=== PATIENT | female | born 1945 | race Caucasian/White ===

== ENCOUNTER 2016-11-09 10:24 | Outpatient (CLI) | payer MEDICARE, OTHER ==
[2016-11-09 11:12] LABS: eGFR (African) > 60; eGFR (Non-African) > 60
== END 2016-11-09 10:25 ==
LOC: LAB 10:24
PROVIDERS: ATTEND Family Medicine
DX: I10 Essential (primary) hypertension (principal)
CPT/HCPCS: 36415; 80053; 80061

== ENCOUNTER 2017-10-09 18:33 | Emergency (ER) | payer MEDICARE, OTHER ==
[2017-10-09] MEDS ORDERED: MAG HYDROX/ALUMINUM HYD/SIMETH 30 ML, Lidocaine 2%Visc 15ml 20 MG, PHENobarb/HYOSCY/ATR... PO ONE ×3 (19:22)
[2017-10-09] MEDS ORDERED: ONDANSETRON HCL/PF 4 MG/ 2ML VIAL IVP ONE (19:22)
--- NOTE | 2017-10-09 19:22 | ED Physician Documentation ---
Abdominal Pain - HISTORIAN Historian: patient - HPI Stated Complaint: abdominal pain Chief Complaint: Abdominal Pain Onset: days ago (4) Duration: waxing, waning Timing: still present Context: denies: out of country travel, bad food, recent trauma Severity: mild Quality: burning, other ("gwaning" ) Associated Symptoms: nausea, loss of appetite. denies: fever, chills, vomiting, coffee ground emesis, bloody emesis, diarrhea, grossly bloody stools, mucous, sweating, chest pain, testicular pain, back pain, neck pain Exacerbated by: other (sometimes with food or without food specifically ) Relieved by: other (sometimes eating and sometimes not eating ) Further Comments: yes (She states that she started to have this pain - she states epigastric in location and she states the pain is at times with food or not with food and sometimes the relief comes with eating or not eating. she states the pain is burning and gawing she states that she has had increasing nausea and pain with food specifically today so she has not had any solid foods,. She denies a fever. No pain with urination. No new food exposures. She has had diverticulitis in the past.) - ROS CONST: no problems GI/: denies: constipation, dark urine, problems urinating CVS/RESP: denies: palpitations, shortness of breath, hurts to breath, cough EYES/ENT: denies: problems with vision, sore throat MS/SKIN/LYMPH: none NEURO/PSYCH: denies: headache, dizziness, light-headedness, anxiety, depression - SOCIAL HX Smoking History: cigarettes Alcohol Use: none Drug Use: none - FAMILY HX Family History: other (diverticulitis ) - PAST HX Past History: other (diverticulitis, HTN, hyperlipidemia, anxiety and GERD ) Ischemic Bowel Risk Factors: none Other History: hypertension Surgeries/Procedures: none Immunizations: UTD Allergies/Adverse Reactions: Allergies Allergy/AdvReac Type Severity Reaction Status Date / Time No Known Allergies Allergy Verified 10/09/17 19:12 - VITAL SIGNS Vital Signs: Vital Signs Temp Pulse Resp BP Pulse Ox 98.3 F 98 H 16 152/88 95 10/09/17 19:21 10/09/17 19:21 10/09/17 19:21 10/09/17 19:21 10/09/17 19:21 - REVIEWED ASSESSMENTS Nursing Assessment Reviewed: Yes Vitals Reviewed: Yes Progress - Progress Progress: 1950: Nausea has resolved with med. She continues to have abdominal pain DG 0: stating pain is less after GI cocktail. no Nausea . DG 223: results discussed and plan. She is agreeable DG ED Results Lab/Radiology - Lab Results Lab Results: Lab Results 10/09/17 10/09/17 10/09/17 21:37 19:31 19:31 WBC RBC Hgb Hct MCV MCH MCHC RDW Plt Count Neut % (Auto) Lymph % (Auto) [place] % (Auto) Eos % (Auto) Baso % (Auto) Neut # (Auto) Lymph # (Auto) [place] # (Auto) Eos # (Auto) Baso # (Auto) Reactive Lymphs % Reactive Lymphs # PT INR D-Dimer 1024 ng/mL H ng/mL (6.0-682) Sodium Potassium Chloride Carbon Dioxide BUN Creatinine Estimated Creat Clear Est GFR ( Amer) Est GFR (Non-Af Amer) Glucose Calcium Total Bilirubin AST ALT Alkaline Phosphatase Troponin I < 0.03 ng/mL L ng/mL (0.03-0.06) NT-Pro-B Natriuret Pep 290.1 pg/mL H pg/mL (15.0-125.0) Total Protein Albumin Lipase 31 U/L U/L (23-300) 10/09/17 10/09/17 10/09/17 19:31 19:31 19:30 WBC 6.80 K/ul K/ul (4.00-12.00) RBC 4.54 M/ul M/ul (3.90-5.20) Hgb 15.4 g/dL g/dL (12.0-16.0) Hct 44.8 % % (34.5-46.5) MCV 98.8 fl fl (80.0-100.0) MCH 33.9 pg pg (28.0-34.0) MCHC 34.3 g/dL g/dL (30.0-36.0) RDW 13.3 % % (11.3-14.3) Plt Count 232 K/mm3 K/mm3 (130-400) Neut % (Auto) 63.8 % % (39.0-79.0) Lymph % (Auto) 29.1 % % (16.0-50.0) [place] % (Auto) 3.6 % % (0.0-11.0) Eos % (Auto) 1.6 % % (0.0-6.8) Baso % (Auto) 0.3 (0.0-1.5) Neut # (Auto) 4.4 # k/uL # k/uL (1.4-7.7) Lymph # (Auto) 2.0 # k/uL # k/uL (0.6-4.0) [place] # (Auto) 0.2 # k/uL # k/uL (0.0-0.9) Eos # (Auto) 0.1 # k/uL # k/uL (0.0-0.6) Baso # (Auto) 0.0 # k/uL # k/uL (0.0-0.5) Reactive Lymphs % 1.7 % % (0.0-5.0) Reactive Lymphs # 0.1 # k/uL # k/uL (0.0-0.8) PT 9.9 Seconds Seconds (9.4-11.6) INR 0.94 (0.9-1.2) D-Dimer Sodium 140 mmol/L mmol/L (136-145) Potassium 3.6 mmol/L mmol/L (3.5-5.1) Chloride 96 mmol/L L mmol/L (98-107) Carbon Dioxide 34 mmol/L H mmol/L (22-30) BUN 16 mg/dL mg/dL (7-17) Creatinine 0.70 mg/dL mg/dL (0.52-1.04) Estimated Creat Clear 133 Est GFR ( Amer) > 60 (60 - ) Est GFR (Non-Af Amer) > 60 (60 - ) Glucose 137 mg/dL H mg/dL (74-106) Calcium 9.0 mg/dL mg/dL (8.4-10.2) Total Bilirubin < 0.1 mg/dL L mg/dL (0.2-1.3) AST 15 U/L U/L (15-46) ALT 25 U/L U/L (13-69) Alkaline Phosphatase 78 U/L U/L (38-126) Troponin I NT-Pro-B Natriuret Pep Total Protein 7.4 g/dL g/dL (6.3-8.2) Albumin 4.2 g/dL g/dL (3.5-5.0) Lipase - Radiology Radiology Impressions: Chest 2 views Date of Exam: History: EPIGASTRIC PAIN X1 WEEK (Hx) / ITS.REASON cough and wheeze Findings: No comparison studies are provided. The cardiac and mediastinal silhouettes are normal. The lungs are clear. There is no evidence of infiltrate or effusion. The trachea is midline and aortic arch contour is normal. The pulmonary vascularity is within normal limits. There is multilevel degenerative thoracic spondylosis. Impression: No acute cardiopulmonary abnormality. Electronically signed on Oct 09, 2017 8:07:37 PM CDT by: Mimi Ortiz CT abdomen and pelvis without contrast Date of study: October 09, 2017. CLINICAL HISTORY: EPIGASTRIC PAIN, HX OF DIVERTICULITIS, SCANNED EXTRA ON PE STUDY TO COVER THE AREA THE PATIENT WAS COMPLAINING OF PAIN WITH CONTRAST (Hx) / TECHNIQUE: 1.25 mm contiguous axial images of the abdomen and pelvis non contrast. FINDINGS: The lung bases are clear. Abdomen: A small hiatal hernia is present. The liver, pancreas and spleen are normal in appearance. The gallbladder is unremarkable. There is a 2 cm right renal mass exophytic from the lateral aspect of the right kidney. Further e valuation with ultrasound is recommended. Multiple bilateral renal cortical cysts are noted. A 2.4 cm left adrenal mass is indeterminate on the basis of this examination alone. The infrarenal abdominal aorta is somewhat ectatic measuring 2.5 cm in diameter and scattered atherosclerotic calcifications are present. The small bowel is nondistended. There is no evidence of free air or free fluid. A fat containing umbilical hernia is present. Pelvis: There is diverticulosis of the descending and sigmoid colon. The distal ureters and bladder are normal in appearance. The appendix is normal. There is no evidence of free air or free fluid. The sigmoid colon and rectum are normal. The remaining pelvic structures are within normal limits and the bones of the pelvis are intact. Multilevel degenerative lumbar spondylosis is present. Grade IL45 anterior spondylolisthesis and multilevel degenerative lumbar spondylosis are present. IMPRESSION: 2 cm right renal mass. Recommend followup ultrasound for further evaluation. 2.4 cm left adrenal mass. Descending and sigmoid colon diverticulosis. Electronically signed on Oct 09, 2017 9:45:15 PM CDT by: Mimi Ortiz - Orders Orders: ED Orders Category Date Time Status IV Started NOW Care 10/09/17 19:23 Active CHEST 2VIEW [RAD] Stat Exams 10/09/[address] ABD & PELVIS W/O CON Stat Exams 10/09/[address] CHEST W/ CONTRAST Stat Exams 10/09/17 Taken BNP [NT-proBNP] Stat Lab 10/09/17 21:37 Completed CBC/PLATELET/DIFF Routine Lab 10/09/17 19:31 Completed CMP Routine Lab 10/09/17 19:31 Completed D DIMER Stat Lab 10/09/17 19:31 Completed LIPASE Stat Lab 10/09/17 19:31 Completed PTINR [PT-INR] Routine Lab 10/09/17 19:30 Completed TROPONIN I (cTnI) Stat Lab 10/09/17 19:31 Completed URINALYSIS Routine Lab 10/09/17 Ordered 0.9 % Sodium Chloride [Normal Saline] 1,000 ml Med 10/09/17 19:30 Ordered IV Q10H Ciprofloxacin HCl [Cipro] Med 10/09/17 22:41 Discontinued 500 mg PO NOW ONE Lidocaine 2%Visc 15ml [Xylocaine] Med 10/09/17 22:00 Discontinued 300 mg .ROUTE .STK-MED ONE Mag Hydrox/Aluminum Hyd/Simeth [Mylanta] 30 ml Med 10/09/17 19:22 Ordered Lidocaine 2%Visc 15ml [Xylocaine] 20 mg PHENobarb/HYOSCY/ATROPINE/SCOP [] 10 ml PO NOW Magnesium, Aluminum Hydroxide [Maalox] Med 10/09/17 22:00 Discontinued 30 ml PO .STK-MED ONE Ondansetron HCl/Pf [Zofran 4 mg/2 ml] Med 10/09/17 19:22 Discontinued 4 mg IVP NOW ONE predniSONE [Deltasone] Med 10/09/17 22:41 Discontinued 10 mg PO NOW ONE EKG WITH COMPARISON Stat Ther 10/09/17 Ordered Abdominal Pain Physical Exam - Physical Exam General Appearance: no acute distress, alert EENT: eye inspection normal, ENT inspection normal NECK: normal inspection RESPIRATORY: no resp distress, chest non-tender, breath sounds normal CVS: reg rate & rhythm, heart sounds normal, equal pulses, no murmur ABDOMEN: soft, normal bowel sounds, no distension, tenderness (LUQ with palpation ) BACK: normal inspection SKIN: warm/dry, normal color EXTREMITIES: non-tender, normal range of motion, no evidence of injury, no edema NEURO: oriented X3, CN's nml as tested, motor nml, sensation nml, mood/affect nml, cognition normal Vital Signs: Vital Signs Temp Pulse Resp BP Pulse Ox 98.3 F 98 H 16 152/88 95 10/09/17 19:21 10/09/17 19:21 10/09/17 19:21 10/09/17 19:21 10/09/17 19:21 Discharge Clincal Impression: Renal mass Diverticulosis Qualifiers: Diverticulosis site: diverticulosis of large intestine Diverticulosis bleeding: diverticulosis without bleeding Qualified Code(s): K57.30 - Diverticulosis of large intestine without perforation or abscess without bleeding Referrals: Benjamin Perez MD [Primary Care Provider] - 2 Days Additional Instructions: 1. Cipro 500 mg take 1 by mouth twice daily x 10 2. Medrol Dose pack - as directed 3. Zofran 4 mg Take 1 by mouth every 8 hours as needed for nausea 4. Omeprazole 40 mg Take 1 by mouth daily 5. [place] foods 6. Follow up with Dr Perez this week to get U/S of kidney 7. Return to ER for any concerns Condition: Stable Disposition: 01 HOME, SELF-CARE Decision to Admit: NO Date of Decison to Admit: 10/09/17 Decision Time: 22:47
[2017-10-09] MEDS ORDERED: 0.9 % SODIUM CHLORIDE 1,000 ML IV SCH (19:30)
[2017-10-09 19:42] LABS: BASOPHILS % 0.3 (0.0-1.5); EOSINOPHILS % 1.6 % (0.0-6.8); MEAN CORPUSCULAR HEMOGLOBIN 33.9 pg (28.0-34.0); MEAN CORPUSCULAR VOLUME 98.8 fl (80.0-100.0); MONOCYTES % 3.6 % (0.0-11.0); NEUTROPHILS # 4.4 # k/uL (1.4-7.7)
[2017-10-09] MEDS ORDERED: 0.9 % SODIUM CHLORIDE 1,000 ML IV ONE (19:42)
[2017-10-09 20:06] LABS: eGFR (African) > 60; eGFR (Non-African) > 60
[2017-10-09] MEDS ORDERED: Lidocaine 2%Visc 15ml 20 MG/ML UDC ONE (22:00)
[2017-10-09] MEDS ORDERED: MAGNESIUM, ALUMINUM HYDROXIDE 30 ML UDC PO ONE (22:00)
[2017-10-09] MEDS ORDERED: CIPROFLOXACIN HCL 500 MG TABLET PO ONE (22:41)
[2017-10-09] MEDS ORDERED: predniSONE 10 MG TABLET PO ONE (22:41)
[2017-10-09 23:48] VITALS: BP 187/92
--- NOTE | 2017-10-10 06:41 | Diagnostic Imaging Report ---
LUCILLE TINAJERO [facility] [place] [facility] [address] [facility] [address] [place], [place]. [address] Report Submission Date: Oct 09, 2017 9:45:15 PM CDT Patient Study Name: KYLIE LAWSON Date: Oct 09, 2017 9:01:52 PM CDT Modality Type: CT\SR Gender: F Description: CT ABD PELVIS W/ CON : 45 Institution: [facility] [place] [facility] Physician: LUCILLE TINAJERO CT abdomen and pelvis without contrast Date of study: October 09, 2017. CLINICAL HISTORY: EPIGASTRIC PAIN, HX OF DIVERTICULITIS, SCANNED EXTRA ON PE STUDY TO COVER THE AREA THE PATIENT WAS COMPLAINING OF PAIN WITH CONTRAST (Hx) / TECHNIQUE: 1.25 mm contiguous axial images of the abdomen and pelvis non contrast. FINDINGS: The lung bases are clear. Abdomen: A small hiatal hernia is present. The liver, pancreas and spleen are normal in appearance. The gallbladder is unremarkable. There is a 2 cm right renal mass exophytic from the lateral aspect of the right kidney. Further evaluation with ultrasound is recommended. Multiple bilateral renal cortical cysts are noted. A 2.4 cm left adrenal mass is indeterminate on the basis of this examination alone. The infrarenal abdominal aorta is somewhat ectatic measuring 2.5 cm in diameter and scattered atherosclerotic calcifications are present. The small bowel is nondistended. There is no evidence of free air or free fluid. A fat containing umbilical hernia is present. Pelvis: There is diverticulosis of the descending and sigmoid colon. The distal ureters and bladder are normal in appearance. The appendix is normal. There is no evidence of free air or free fluid. The sigmoid colon and rectum are normal. The remaining pelvic structures are within normal limits and the bones of the pelvis are intact. Multilevel degenerative lumbar spondylosis is present. Grade IL45 anterior spondylolisthesis and multilevel degenerative lumbar spondylosis are present. IMPRESSION: 2 cm right renal mass. Recommend followup ultrasound for further evaluation. 2.4 cm left adrenal mass. Descending and sigmoid colon diverticulosis. Electronically signed on Oct 09, 2017 9:45:15 PM CDT by: Mimi EMMANUEL
--- NOTE | 2017-10-10 06:42 | Diagnostic Imaging Report ---
LUCILLE TINAJERO [facility] [address] [facility].[address] [address] Report Submission Date: Oct 09, 2017 8:07:37 PM CDT Patient Study Name: KYLIE LAWSON Date: Oct 09, 2017 7:43:04 PM CDT Modality Type: DX Gender: F Description: CHEST : 45 Institution: [facility] Physician: LUCILLE TINAJERO Chest 2 views Date of Exam: History: EPIGASTRIC PAIN X1 WEEK (Hx) / ITS.REASON cough and wheeze Findings: No comparison studies are provided. The cardiac and mediastinal silhouettes are normal. The lungs are clear. There is no evidence of infiltrate or effusion. The trachea is midline and aortic arch contour is normal. The pulmonary vascularity is within normal limits. There is multilevel degenerative thoracic spondylosis. Impression: No acute cardiopulmonary abnormality. Electronically signed on Oct 09, 2017 8:07:37 PM CDT by: Mimi EMMANUEL
--- NOTE | 2017-10-10 06:42 | Diagnostic Imaging Report ---
LUCILLE TINAJERO [facility] [address] [facility] [address] [place], [place]. [address] Report Submission Date: Oct 09, 2017 9:32:03 PM CDT Patient Study Name: KYLIE LAWSON Date: Oct 09, 2017 8:56:38 PM CDT Modality Type: CT\SR Gender: F Description: CT CHEST W/ CONTRAST : 45 Institution: [facility] Physician: LUCILLE TINAJERO CT chest with contrast Date of study: October 09, 2017. CLINICAL HISTORY: ELEVATED DDIMER, COUGH, EPIGASTRIC PAIN (Hx) / ITS.REASON PE r/o D Dimer elevated (DICOM Hx) / ITS.REASON cough and wheeze (Pt comments) TECHNIQUE: 2.5 mm contiguous axial images of the chest with contrast. Sagittal and coronal reconstructions. FINDINGS: There is left lingular atelectasis. A 6 mm left upper lobe lung nodule is present on axial image. A [address] scan of the chest is recommended. There is no evidence of pulmonary infiltrate, pleural effusion or pneumothorax. The cardiac and mediastinal vascular structures enhance appropriately. The aorta and pulmonary arteries are normal in caliber. There is no evidence of pulmonary artery filling defect to suggest pulmonary embolism. The mediastinal contents are within normal limits. There is a small hiatal hernia. The visualized portions of the liver and spleen are unremarkable. The pancreas is atrophic. There is a 2 cm peripherally enhancing right renal mass. Further evaluation with ultrasound is recommended. A 2.4 cm left adrenal mass is indeterminate on the basis of this examination alone. IMPRESSION: 6 mm left upper lobe lung nodule. Recommend [address] scan of the chest. No evidence of acute pulmonary embolism. 2 cm peripherally enhancing right renal mass. Recommend followup ultrasound. 2.4 cm left adrenal mass, indeterminate. Electronically signed on Oct 09, 2017 9:32:03 PM CDT by: Mimi EMMANUEL
[2017-10-10 07:50] LABS: OCCULT BLOOD,URINE NEGATIVE (NEGATIVE); UROBILINOGEN URINE 0.2 Eu (0.2-1.0)
== END 2017-10-09 23:55 | disposition home or self-care (01) ==
LOC: ED 18:33
DX: K57.30 Diverticulosis of large intestine without perforation or abscess without bleeding (principal); N28.89 Other specified disorders of kidney and ureter
CPT/HCPCS: 71046; 71260; 74176; 80053; 81002; 83690; 83880; 84484; 85025; 85379; 85610; 93005; A9270; J2405; J7030; J7512; 71275; 96365; 96368; 96375; 99284; Q9967; S1016

== ENCOUNTER 2017-10-25 11:38 | Outpatient (CLI) | payer MEDICARE, OTHER ==
--- NOTE | 2017-10-25 16:34 | Diagnostic Imaging Report ---
OWEN GILLESPIE [facility] [address] [facility].[address] [address] Report Submission Date: Oct 25, 2017 2:27:05 PM CDT Patient Study Name: KYLIE LAWSON Date: Oct 25, 2017 11:49:17 AM CDT Modality Type: US Gender: F Description: US RENAL : 45 Institution: [facility] Physician: OWEN GILLESPIE Examination: Ultrasound kidneys History: Right renal lesion. Comparison exams: CT dated 09 October 2017 Findings: Right kidney measures 10.4 cm in length. Left kidney measures 12.5 cm in length. Within the midpole region of the left kidney is a rounded structure measuring approximately 2 cm diameter. No evident no other definite cortical irregularities. No hydronephrosis. Latter margin without gross abnormality. Impression: Left mid renal mass. Right renal mass not visualized by ultrasound sensitivity. Given the CT findings, and the strong possibility of right renal cell carcinoma, renal MRI recommended to further evaluate. Electronically signed on Oct 25, 2017 2:27:05 PM CDT by: Rey EMMANUEL
== END 2017-10-25 11:40 ==
LOC: RAD 11:38
PROVIDERS: ATTEND Family Medicine
DX: N28.89 Other specified disorders of kidney and ureter (principal)
CPT/HCPCS: 76705

== ENCOUNTER 2018-05-07 21:28 | Emergency (ER) | payer MEDICARE, OTHER ==
--- NOTE | 2018-05-07 22:11 | ED Physician Documentation ---
General Adult - HPI Stated Complaint: "I have had fever I think for 2 days" Chief Complaint: General Adult Additional Information: Patient presents to ED with a 2 day history of fever, chills, cough, weakness and general malaise. Patient states all of her grand kids recently had the flu. Onset: days ago (2) Timing: still present Severity: mild Further Comments: no - ROS CONST: fever EYES/ENT: none CVS/RESP: cough. denies: shortness of breath GI/: denies: vomiting, nausea MS/SKIN/LYMPH: none NEURO/PSYCH: denies: headache - PAST HX Past History: COPD Other History: none Surgeries/Procedures: none Allergies/Adverse Reactions: Allergies Allergy/AdvReac Type Severity Reaction Status Date / Time No Known Drug Allergies Allergy Verified 05/07/18 22:50 Home Medications: Ambulatory Orders Medication Instructions Recorded predniSONE [Deltasone] 20 mg PO DIRECTED #6 tablet 05/07/18 - SOCIAL HX Smoking History: cigarettes, greater than 1 pack/day Alcohol Use: none Drug Use: none - FAMILY HX Family History: No - VITAL SIGNS Vital Signs: Vital Signs Temp Pulse Resp BP Pulse Ox 98.5 F 76 16 113/63 91 L 05/07/18 21:38 05/07/18 21:38 05/07/18 21:38 05/07/18 21:38 05/07/18 21:38 - REVIEWED ASSESSMENTS Nursing Assessment Reviewed: Yes Vitals Reviewed: Yes Progress - Results/Orders Results/Orders: Influenza A - Positive ED Results Lab/Radiology - Radiology Radiology Impressions: Report Submission Date: May 07, 2018 10:01:02 PM CDT Patient Study Name: KYLIE LAWSON Date: May 07, 2018 9:43:48 PM CDT Modality Type: DX Gender: F Description: CHEST 1VIEW : 45 Institution: [facility] Physician: LES JONES The chest AP portable Date of Exam: May 07, 2018. History: FEVER (Hx) / Findings: Comparison with October 09, 2017 demonstrates the cardiac and mediastinal silhouettes are stable. No acute infiltrate or effusion is identified. The trachea is midline. Aortic arch contour is normal. The pulmonary vascularity is stable. Impression: No acute cardiopulmonary abnormality. Electronically signed on May 07, 2018 10:01:02 PM CDT by: Mimi Ortiz - Orders Orders: ED Orders Category Date Time Status CHEST 1VIEW [RAD] Stat Exams 05/07/18 Taken CBC/PLATELET/DIFF Routine Lab 05/07/18 22:00 Received CMP Routine Lab 05/07/18 22:00 Received INFLUENZA A&B Stat Lab 05/07/18 Uncollected NT-proBNP Stat Lab 05/07/18 22:00 Received UA W/MICRO IF INDICATED Routine Lab 05/07/18 21:34 Ordered General Adult Physical Exam - PHYSICAL EXAM GENERAL APPEARANCE: no distress EENT: LEXII RESPIRATORY: no resp distress, wheezes (scattered bilaterally) CVS: reg rate & rhythm, heart sounds normal ABDOMEN: soft, normal bowel sounds. No: tenderness BACK: normal inspection, no CVA tenderness SKIN: warm/dry, normal color EXTREMITIES: non-tender NEURO: oriented X3, motor nml Discharge Clincal Impression: Influenza A Prescriptions: predniSONE [Deltasone] 20 mg PO DIRECTED #6 tablet Referrals: Benjamin Perez MD [Primary Care Provider] - 2 Days Additional Instructions: 1. Tylenol and/or Ibuprofen as needed for bodyaches/fever 2. Drink plenty of fluids to maintain proper hydration 3. Avoid contact with other people for the next 48 hours 4. Follow up with PCP within 1 week 5. Return to the ER for new or worsening symptoms. Condition: Stable Decision to Admit: NO Date of Decison to Admit: 05/07/18 Decision Time: 23:31
[2018-05-07] MEDS ORDERED: IPRATROPIUM/ALBUTEROL SULFATE 3 ML AMPUL.NEB NEB ONE (22:22)
[2018-05-07] MEDS ORDERED: 0.9 % SODIUM CHLORIDE 1,000 ML IV ONE (22:22)
[2018-05-07] MEDS ORDERED: methylPREDNISolone SOD SUCC 125 MG/2 ML VIAL IVP ONE (22:22)
[2018-05-08 00:09] VITALS: BP 116/59
--- NOTE | 2018-05-08 05:13 | Diagnostic Imaging Report ---
LES JONES [facility] [address] [facility] [address] [place], [place]. [address] Report Submission Date: May 07, 2018 10:01:02 PM CDT Patient Study Name: KYLIE LAWSON Date: May 07, 2018 9:43:48 PM CDT Modality Type: DX Gender: F Description: CHEST 1VIEW : 45 Institution: [facility] Physician: LES JONES The chest AP portable Date of Exam: May 07, 2018. History: FEVER (Hx) / Findings: Comparison with October 09, 2017 demonstrates the cardiac and mediastinal silhouettes are stable. No acute infiltrate or effusion is identified. The trachea is midline. Aortic arch contour is normal. The pulmonary vascularity is stable. Impression: No acute cardiopulmonary abnormality. Electronically signed on May 07, 2018 10:01:02 PM CDT by: Mimi EMMANUEL
[2018-05-08 06:40] LABS: OCCULT BLOOD,URINE NEGATIVE (NEGATIVE); UROBILINOGEN URINE 0.2 Eu (0.2-1.0)
== END 2018-05-07 23:25 ==
LOC: ED 21:28
DX: J09.X2 Influenza due to identified novel influenza A virus with other respiratory manifestations (principal); Z72.0 Tobacco use
CPT/HCPCS: 71045; 81002; 87400; 94640; 96374; 99283; 99284; J2930; J7030; 80053; 83880; 85025

== ENCOUNTER 2018-05-11 21:01 | Inpatient (IN) | payer MEDICARE, OTHER ==
[2018-05-11] MEDS ORDERED: IPRATROPIUM/ALBUTEROL SULFATE 3 ML AMPUL.NEB NEB STA (21:18)
[2018-05-11] MEDS ORDERED: 0.9 % SODIUM CHLORIDE 1,000 ML IV ONE (21:18)
[2018-05-11] MEDS ORDERED: methylPREDNISolone SOD SUCC 125 MG/2 ML VIAL IVP ONE (21:24)
[2018-05-11 21:34] LABS: MEAN CORPUSCULAR HEMOGLOBIN 34.5 pg (28.0-34.0); MONOCYTES % 6.8 % (0.0-11.0)
[2018-05-11 21:35] LABS: BASOPHILS % 0.6 (0.0-1.5); EOSINOPHILS % 0.6 % (0.0-6.8); NEUTROPHILS # 2.8 # k/uL (1.4-7.7)
--- NOTE | 2018-05-11 21:45 | ED Physician Documentation ---
Dyspnea - HISTORIAN Historian: patient - HPI Chief Complaint: Dyspnea Onset: days ago Duration: worse Initiating Event: upper respiratory illness (Influenza A on 05/07/2018) Severity: moderate Exacerbated By: exertion, coughing Associated Symptoms: chills, fever, productive cough Further Comments: yes (72 year old female patient presents with complaint of dyspnea which started on Tuesday; on arrival to ER RA Sat 87%. Patient was seen in ER on 05/07/18 and diagnosed with Influenza A, discharged with prednisone tabs. Patient reports symptoms have become progressively worse since Tuesday. Used her nebulizer multiple times today.) - ROS CONST: recent illness (Influenza A) EYES/ENT: nasal congestion GI/: diarrhea. denies: abdominal pain, problems urinating, vomiting, nausea, black stools NEURO/PSYCH: headache MS/SKIN/LYMPH: none - PAST HX Lung Disease: COPD Cardiac Disease: other (HLD) PE Risk Factors: hypertension Surgeries/Procedures: hysterectomy, other (LEEP, Melanoma chest, tonsillectomy) Other History: hyperlipidemia Allergies/Adverse Reactions: Allergies Allergy/AdvReac Type Severity Reaction Status Date / Time hydromorphone [From Dilaudid] Allergy Verified 05/11/18 21:38 Home Medications: Ambulatory Orders Medication Instructions Recorded predniSONE [Deltasone] 20 mg PO DIRECTED #6 tablet 05/07/18 - SOCIAL HX Smoking History: cigarettes - FAMILY HX Family History: other (breast CA, mother - mesothelioma) - VITAL SIGNS Vital Signs: Vital Signs Temp Pulse Resp BP Pulse Ox 116/59 05/07/18 23:15 - REVIEWED ASSESSMENTS Nursing Assessment Reviewed: Yes Vitals Reviewed: Yes Progress - Progress Progress: Case discussed with Lory ROSE - patient accepted for acute admission for exacerbation of COPD and failed outpatient therapy. - EKG/XRAY/CT EKG: rhythm (SR, Rate 91, no acute changes) ED Results Lab/Radiology - Lab Results Lab Results: Lab Results 05/11/18 21:22 WBC 4.60 K/ul K/ul (4.00-12.00) RBC 4.29 M/ul M/ul (3.90-5.20) Hgb 14.8 g/dL g/dL (12.0-16.0) Hct 44.1 % % (34.5-46.5) MCV 103.0 fl H fl (80.0-100.0) MCH 34.5 pg H pg (28.0-34.0) MCHC 33.6 g/dL g/dL (30.0-36.0) RDW 12.2 % % (11.3-14.3) Plt Count 133 K/mm3 K/mm3 (130-400) Neut % (Auto) 60.4 % % (39.0-79.0) Lymph % (Auto) 31.6 % % (16.0-50.0) [place] % (Auto) 6.8 % % (0.0-11.0) Eos % (Auto) 0.6 % % (0.0-6.8) Baso % (Auto) 0.6 (0.0-1.5) Neut # (Auto) 2.8 # k/uL # k/uL (1.4-7.7) Lymph # (Auto) 1.5 # k/uL # k/uL (0.6-4.0) [place] # (Auto) 0.3 # k/uL # k/uL (0.0-0.9) Eos # (Auto) 0.0 # k/uL # k/uL (0.0-0.6) Baso # (Auto) 0.0 # k/uL # k/uL (0.0-0.5) - Orders Orders: ED Orders Category Date Time Status Continuous EKG monitoring Q30M Care 05/11/18 21:18 Active Continuous Pulse Oximetry Q30M Care 05/11/18 21:[address] IV Lock 1T Care 05/11/18 21:18 Active CHEST 2VIEW [RAD] Stat Exams 05/11/18 21:18 Ordered CBC/PLATELET/DIFF Stat Lab 05/11/18 21:22 Completed CMP Stat Lab 05/11/18 21:22 Received LACTATE Stat Lab 05/11/18 21:22 Received UA W/MICRO IF INDICATED Stat Lab 05/11/18 21:18 Ordered 0.9 % Sodium Chloride [Normal Saline] 1,000 ml Med 05/11/18 21:18 Discontinued IV NOW Ipratropium/Albuterol Sulfate [Duoneb] Med 05/11/18 21:18 Discontinued 3 ml NEB STAT STA methylPREDNISolone SOD SUCC [Solu-MEDROL] Med 05/11/18 21:24 Discontinued 125 mg IVP NOW ONE Oxygen Daily Oxygen 05/11/18 21:30 Ordered Dyspnea Physical Exam - EXAM General Appearance: moderate distress EENT: eye inspection normal, LEXII Respiratory: accessory muscle use, wheezes, rhonchi (bases left>right), other (increased respiratory effort and tachypnea noted, RA Sat 87%, O2 on at 4L NC) CVS: reg. 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
[2018-05-11 21:47] LABS: eGFR (Non-African) > 60
--- NOTE | 2018-05-11 22:09 | Diagnostic Imaging Report ---
BROOK HAWLEY (MECHANICAL APPRENTICE) - ER [facility] [address] [address] Report Submission Date: May 11, 2018 10:03:29 PM CDT Patient Study Name: KYLIE LAWSON Date: May 11, 2018 9:34:48 PM CDT Modality Type: DX Gender: F Description: CHEST 2VIEW : 45 Institution: [facility] Physician: BROOK HAWLEY (MECHANICAL APPRENTICE) - ER Chest two views History: Cough and smoking Findings: The lungs are moderately hyperinflated. Scattered reticular opacities are observed bilaterally without confluent infiltrate or pleural effusion. Heart size is normal. Impression: Chronic obstructive pulmonary disease. Scattered reticular opacities probably represent a combination of atelectasis and bronchitis. Findings are unchanged since 05/07/2018. Electronically signed on May 11, 2018 10:03:29 PM CDT by: Adan EMMANUEL
[2018-05-11] MEDS ORDERED: cefTRIAXone SODIUM 1 GM in 0.9 % SODIUM CHLORIDE(MINIBAG+ 50 ML IV ONE (22:18)
[2018-05-11] MEDS ORDERED: AZITHROMYCIN 500 MG in 0.9 % SODIUM CHLORIDE 250 ML IV ONE (22:18)
[2018-05-11] MEDS ORDERED: POTASSIUM CHLORIDE 20 MEQ TABLET.ER PO ONE (22:19)
[2018-05-11] MEDS ORDERED: LEVALBUTEROL NEB 1.25 MG/3 ML VIAL.NEB IH PRN (22:22)
[2018-05-11] MEDS ORDERED: IPRATROPIUM/ALBUTEROL SULFATE 3 ML AMPUL.NEB NEB PRN (22:22)
[2018-05-12] MEDS ORDERED: DEXTROSE 5 %-0.45 % SOD CHLORD 1,000 ML IV ONE ×3 (00:55→23:39)
[2018-05-12] MEDS: DEXTROSE 5 %-0.45 % SOD CHLORD 1,000 ML IV SCH ×3 (04:08→23:41)
[2018-05-12] MEDS ORDERED: ZOLPIDEM TARTRATE 10 MG PO PRN (07:07)
[2018-05-12] MEDS ORDERED: HYDROcodone /APAP 10/325 1 EACH TABLET PO PRN (07:07)
[2018-05-12] MEDS ORDERED: PATIENT OWN MED 1 EACH EACH PO PRN (07:23)
--- NOTE | 2018-05-12 07:23 | History and Physical Report ---
History of Present Illnes - History of Present Illness Reason for Visit: Exac COPD, Pneumonia, Influenza A History of Present Illness: Patient is a 72-year-old female who presented to the ER with c/o dysnea. She states that she was seen in the ER a week ago and diagnosed with Influenza A on 05/07/18. On Tuesday, 5 days ago she started having increased shortness of breath. Yesterday, she felt worse- she could not hardly walk to the bathroom without becoming dyspneic. She states that she thought she "was going to " so she came to the ER. On arrival to the ER it appears her oxygen sat was 87%- she does not wear oxygen at home. She has a nebulizer machine that she has been using with no relief. - Past Medical History Cardiac: HTN, Hyperlipidemia Pulmonary: COPD Gastrointestinal: GERD Psych: Anxiety, Depression, Other (insomnia) Musculoskeletal: Chronic low back pain - Past Surgical History Past Surgical History: Cataract Removal, Hysterectomy, Tonsillectomy, Other (Cervical LEEP, excision of melanoma cyst) - Past Social History Smoke: 2 packs per day Alcohol: None Drugs: None Lives: With Family Domestic Violence: Negative - Health Maintenance Health Maintenance: Influenza Vaccine, Pneumococcal Vaccine Influenza Vaccine: Current for this Influenza Season Pneumonia Vaccine: Yes Resuscitation Status: Resusciation Status Resuscitation Status Full Code Review of Systems - Review of Systems Constitutional: Fever, Chills, Weakness Eyes: negative: conjunctivae inflammation, eyelid inflammation ENT: Nose Congestion. negative: Ear Pain, Throat Pain Respiratory: Cough, Shortness of Breath, SOB with Excertion, Wheezing Cardiovascular: Paroxysmal Noc. Dyspnea. negative: Chest Pain Gastrointestinal: negative: Nausea, Vomiting, Abdominal Pain Genitourinary: negative: Dysuria Musculoskeletal: Back Pain (chronic) Skin: negative: Rash Neurological: Weakness - Medications/Allergies Allergies/Adverse Reactions: Allergies Allergy/AdvReac Type Severity Reaction Status Date / Time hydromorphone [From Dilaudid] Allergy Verified 05/11/18 21:38 Current Inpatient Medications: Current Inpatient Medications Hydrocodone Bitart/Acetaminophen ([place] 10/325) 1 each PO DAILY PRN PRN Reason: pain Albuterol/Ipratropium (Duoneb) 3 ml NEB Q4 RHONA Budesonide (Pulmicort) 0.5 mg NEB BID RHONA Enoxaparin Sodium (Lovenox) 40 mg SQ DAILY RHONA Stop: 05/26/18 08:59 Azithromycin 250 mg/ Sodium (Chloride) 250 mls @ 125 mls/hr IV Q24H RHONA Stop: 05/22/18 08:59 Ceftriaxone Sodium 1 gm/ (Sodium Chloride) 50 mls @ 100 mls/hr IV DAILY RHONA Dextrose/Sodium Chloride (D51/2ns) 1,000 mls @ 100 mls/hr IV Q10H RHONA Last Admin: 05/12/18 04:08 Dose: 100 mls/hr Levalbuterol HCl (Xopenex Neb) 1.25 mg IH Q6H PRN PRN Reason: Wheezing Methylprednisolone Sodium Succinate (Solu-Medrol) 62.5 mg IVP Q12 RHONA Miscellaneous (Alprazolam [Xanax]) 1 mg PO TID PRN PRN Reason: Anxiety Miscellaneous (Citalopram Hydrobromide [Celexa]) 40 mg PO DAILY RHONA Miscellaneous (Lisinopril/Hydrochlorothiazide [Prinizide]) 1 each PO DAILY RHONA Miscellaneous (Zolpidem Tartrate [Zolpidem Tartrate]) 10 mg PO HS PRN PRN Reason: SLEEP Exam - Exam Vital Signs: Vital Signs (72 hours) 05/11/18 05/11/18 05/11/18 21:01 21:18 21:48 Temperature 98.9 F Pulse Rate 83 89 Pulse Rate [ 87 Left Pulse ox] Respiratory 24 Rate Blood Pressure 172/99 [Left Arm] O2 Sat by Pulse 87 L 97 94 Oximetry 05/11/18 05/11/18 05/11/18 22:18 22:48 23:18 Temperature Pulse Rate Pulse Rate [ Left Pulse ox] Respiratory Rate Blood Pressure [Left Arm] O2 Sat by Pulse 94 94 94 Oximetry 05/11/18 05/11/18 05/12/18 23:30 23:41 00:00 Temperature 97.1 F L Pulse Rate 88 77 Pulse Rate [ 88 Left Pulse ox] Respiratory 20 Rate Blood Pressure 169/110 [Left Arm] O2 Sat by Pulse 94 95 94 Oximetry 05/12/18 05/12/18 05/12/18 00:30 01:00 01:30 Temperature Pulse Rate 79 80 76 Pulse Rate [ Left Pulse ox] Respiratory Rate Blood Pressure [Left Arm] O2 Sat by Pulse 94 94 94 Oximetry 05/12/18 05/12/18 05/12/18 02:00 02:14 02:22 Temperature 97.8 F Pulse Rate 76 Pulse Rate [ Left Pulse ox] Respiratory 20 Rate Blood Pressure 147/80 [Left Arm] O2 Sat by Pulse 93 94 95 Oximetry 05/12/18 05/12/18 05/12/18 02:30 03:00 03:30 Temperature Pulse Rate 80 58 L 58 L Pulse Rate [ Left Pulse ox] Respiratory Rate Blood Pressure [Left Arm] O2 Sat by Pulse 94 94 Oximetry 05/12/18 05/12/18 05/12/18 03:41 04:00 04:30 Temperature 97.8 F Pulse Rate 58 L 58 L Pulse Rate [ 88 Left Pulse ox] Respiratory 20 Rate Blood Pressure 147/80 [Left Arm] O2 Sat by Pulse 95 93 94 Oximetry 05/12/18 05/12/18 05/12/18 04:44 04:45 04:50 Temperature Pulse Rate 58 L 58 L Pulse Rate [ Left Pulse ox] Respiratory Rate Blood Pressure [Left Arm] O2 Sat by Pulse 94 94 Oximetry 05/12/18 05/12/18 05/12/18 05:49 05:51 05:53 Temperature 97.8 F Pulse Rate 66 66 Pulse Rate [ 88 Left Pulse ox] Respiratory Rate Blood Pressure 147/80 [Left Arm] O2 Sat by Pulse 95 95 95 Oximetry 05/12/18 05/12/18 06:41 06:42 Temperature 98.2 F Pulse Rate Pulse Rate [ Left Pulse ox] Respiratory 18 Rate Blood Pressure 132/67 [Left Arm] O2 Sat by Pulse 95 95 Oximetry General: Alert, Oriented to Person, Oriented to Place, Oriented to Time, Cooperative, Mild distress, Obese HEENT: PERRLA, Mouth Mucous membr. moist/[place], Nose Mucous membr. moist/[place] Neck: Normal Range of Motion Carotids: No bruit Lungs: Wheezes, Rhonchi Cardiovascular: Regular rate, Normal S1, Normal S2 Peripheral Edema: None Peripheral Pulses: 2+ Abdomen: Normal bowel sounds, Soft, No tenderness Integumentary: Normal, [place], Warm, Pale, Decreased Turgor Extremities: No edema, Normal pulses, No tenderness/swelling Neurological: Normal speech, Strength Equal Bilat, Normal tone, Sensation intact, Generalized Weakness Psych/Mental Status: Mental status NL, Mood NL, Appropriate Affect, Intact Judgment - Laboratory Results Laboratory Results: Laboratory Results 05/11/18 05/11/18 21:22 21:22 WBC 4.60 RBC 4.29 Hgb 14.8 Hct 44.1 MCV 103.0 H MCH 34.5 H MCHC 33.6 RDW 12.2 Plt Count 133 Neut % (Auto) 60.4 Lymph % (Auto) 31.6 [place] % (Auto) 6.8 Eos % (Auto) 0.6 Baso % (Auto) 0.6 Neut # (Auto) 2.8 Lymph # (Auto) 1.5 [place] # (Auto) 0.3 Eos # (Auto) 0.0 Baso # (Auto) 0.0 Sodium 142 Potassium 3.0 L Chloride 101 Carbon Dioxide 32 H BUN 11 Creatinine 0.61 Est GFR ( Amer) > 60 Est GFR (Non-Af Amer) > 60 Glucose 107 H Lactate 2.2 H Calcium 8.8 Total Bilirubin 0.3 AST 30 ALT 24 Alkaline Phosphatase 80 Total Protein 7.3 Albumin 3.9 Assessment/Plan - Assessment/Plan (1) Pneumonia and influenza Status: Acute Current Visit: Yes Plan: Will treat with IV antibiotics X 2, HFN every 4 hours, Incentive spirometry, will monitor labs, vital signs with pulse ox (2) COPD exacerbation Status: Acute Current Visit: Yes Plan: Will give scheduled HFN every 4 hours, use incentive spirometer frequently, and IV steroids (3) Hypokalemia Status: Acute Current Visit: Yes Plan: Will give supplemental PO Potassium (4) Influenza A Status: Acute Current Visit: Yes Plan: Will monitor resp. status (she is one week post diagnosis) (5) Anxiety Status: Acute Current Visit: Yes Plan: Will continue with home medication as requested by patient (xanax TID prn) (6) Insomnia Status: Acute Current Visit: Yes Qualifiers: Insomnia type: other insomnia Qualified Code(s): G47.09 - Other insomnia Plan: Will continue with home medication per patient request (jarred ZAVALA) VTE Assessment - RISK FACTOR SCORE VTE RISK FACTOR SCORES: AGE OVER 60 YEARS, ACUTE INFECTION OTHER THEN SEPSIS, OBESITY, SMOKER - RISK VTE HIGH RISK: SCORE OF 3-4 (RISK PROXIMAL DVT 4-8%) PROPHYLAXIS NEEDED (Lovenox daily, Incentive spirometer, frequent ambulation)
[2018-05-12] MEDS ORDERED: 0.9 % SODIUM CHLORIDE 250 ML IV ONE (08:28)
[2018-05-12] MEDS ORDERED: POTASSIUM CHLORIDE 20 MEQ TABLET.ER ONE (08:28)
[2018-05-12] MEDS ORDERED: ENOXAPARIN SODIUM 40 MG/0.4 ML DISP.SYRIN SQ ONE (08:28)
[2018-05-12] MEDS ORDERED: methylPREDNISolone SOD SUCC 125 MG/2 ML VIAL ONE ×2 (08:28→19:41)
[2018-05-12] MEDS ORDERED: AZITHROMYCIN 500 MG VIAL IV ONE (08:28)
[2018-05-12] MEDS ORDERED: BUDESONIDE 0.5MG/2ML AMPUL.NEB NEB ONE ×2 (08:29→19:40)
[2018-05-12] MEDS ORDERED: 0.9 % SODIUM CHLORIDE(MINIBAG+ 50 ML IV ONE (08:29)
[2018-05-12] MEDS ORDERED: CITALOPRAM HYDROBROMIDE 20 MG TABLET ONE (08:29)
[2018-05-12] MEDS ORDERED: cefTRIAXone SODIUM 1 GM INJ ONE (08:29)
[2018-05-12] MEDS ORDERED: AZITHROMYCIN 250 MG in 0.9 % SODIUM CHLORIDE 250 ML IV SCH (09:00)
[2018-05-12] MEDS ORDERED: LISINOPRIL PO SCH (09:00)
[2018-05-12] MEDS ORDERED: HYDROCHLOROTHIAZIDE PO SCH (09:00)
[2018-05-12] MEDS ORDERED: cefTRIAXone SODIUM 1 GM in 0.9 % SODIUM CHLORIDE(MINIBAG+ 50 ML IV SCH (09:00)
[2018-05-12] MEDS ORDERED: IPRATROPIUM/ALBUTEROL SULFATE 3 ML AMPUL.NEB NEB ONE ×3 (09:09→19:38)
[2018-05-12] MEDS: IPRATROPIUM/ALBUTEROL SULFATE 3 ML AMPUL.NEB NEB SCH ×4 (09:10→21:00)
[2018-05-12] MEDS: BUDESONIDE 0.5MG/2ML AMPUL.NEB NEB SCH ×2 (09:16→21:15)
[2018-05-12] MEDS: methylPREDNISolone SOD SUCC 125 MG/2 ML VIAL IVP SCH ×2 (09:22→20:38)
[2018-05-12 09:23] LABS: APPEARANCE,URINE CLEAR (CLEAR); COLOR,URINE YELLOW (YELLOW); OCCULT BLOOD,URINE TRACE-INTACT (NEGATIVE)
[2018-05-12 09:24] LABS: UROBILINOGEN URINE 0.2 Eu (0.2-1.0)
[2018-05-12] MEDS ORDERED: ALPRAZOLAM 0.5 MG TABLET ONE ×2 (09:45→20:41)
[2018-05-12] MEDS: ALPRAZOLAM 1 MG PO PRN ×2 (09:46→20:43)
[2018-05-12] MEDS: POTASSIUM CHLORIDE 20 MEQ TABLET.ER PO SCH (09:47)
[2018-05-12] MEDS: CITALOPRAM HYDROBROMIDE 40 MG PO SCH (09:47)
[2018-05-12] MEDS: ENOXAPARIN SODIUM 40 MG/0.4 ML DISP.SYRIN SQ SCH (09:48)
[2018-05-12] MEDS: LISINOPRIL 10 MG TABLET PO SCH (12:15)
[2018-05-12] MEDS: HYDROCHLOROTHIAZIDE 25 MG TABLET PO SCH (12:15)
[2018-05-12] MEDS ORDERED: ZOLPIDEM TARTRATE 5 MG TABLET PO ONE (20:41)
[2018-05-13] MEDS ORDERED: AZITHROMYCIN 500 MG VIAL IV ONE (00:01)
[2018-05-13] MEDS ORDERED: 0.9 % SODIUM CHLORIDE 250 ML IV ONE (00:01)
[2018-05-13] MEDS: cefTRIAXone SODIUM 1 GM in 0.9 % SODIUM CHLORIDE(MINIBAG+ 50 ML IV SCH ×2 (00:10→08:48)
[2018-05-13] MEDS ORDERED: FUROSEMIDE 40 MG/4 ML VIAL IVP ONE (00:19)
[2018-05-13] MEDS ORDERED: FUROSEMIDE 40 MG/4 ML VIAL ONE (00:28)
[2018-05-13] MEDS ORDERED: IPRATROPIUM/ALBUTEROL SULFATE 3 ML AMPUL.NEB NEB ONE (00:58)
[2018-05-13] MEDS: IPRATROPIUM/ALBUTEROL SULFATE 3 ML AMPUL.NEB NEB SCH ×3 (02:16→07:00)
[2018-05-13] MEDS ORDERED: AZITHROMYCIN 250 MG in 0.9 % SODIUM CHLORIDE 250 ML IV SCH (03:00)
[2018-05-13 03:37] VITALS: BMI 34.4
[2018-05-13 06:46] LABS: MEAN CORPUSCULAR HEMOGLOBIN 33.8 pg (28.0-34.0)
[2018-05-13 06:47] LABS: MONOCYTES % 5.5 % (0.0-11.0); NEUTROPHILS # 3.6 # k/uL (1.4-7.7); eGFR (Non-African) > 60
--- NOTE | 2018-05-13 08:13 | Diagnostic Imaging Report ---
RICHARD NGO [facility] [address] [facility] [address] [address] Report Submission Date: May 13, 2018 8:07:01 AM CDT Patient Study Name: KYLIE LAWSON Date: May 13, 2018 6:16:06 AM CDT Modality Type: DX Gender: F Description: CHEST 2VIEW : 45 Institution: [facility] Physician: RICHARD NGO Chest PA and lateral views Clinical history: Cough and dyspnea Prior study of May 11, 2018 Normal heart shadow. Atherosclerotic thoracic aorta. Underlying COPD. There is small linear infiltrate in the lung bases remain unchanged since . No significant effusion. No signs of congestive heart failure. Mild thoracic spondylosis. Small linear infiltrate in the right upper lung. Impression: COPD Small bibasilar infiltrates and right upper lobe infiltrate unchanged since the previous study Electronically signed on May 13, 2018 8:07:01 AM CDT by: Benjamin EMMANUEL
[2018-05-13] MEDS ORDERED: ENOXAPARIN SODIUM 40 MG/0.4 ML DISP.SYRIN SQ ONE (08:41)
[2018-05-13] MEDS ORDERED: HYDROCHLOROTHIAZIDE 25 MG TABLET PO ONE (08:42)
[2018-05-13] MEDS ORDERED: LISINOPRIL 10 MG TABLET PO ONE (08:42)
[2018-05-13] MEDS ORDERED: POTASSIUM CHLORIDE 20 MEQ TABLET.ER ONE (08:42)
[2018-05-13] MEDS ORDERED: methylPREDNISolone SOD SUCC 125 MG/2 ML VIAL ONE (08:42)
[2018-05-13] MEDS ORDERED: CITALOPRAM HYDROBROMIDE 20 MG TABLET ONE (08:43)
[2018-05-13] MEDS ORDERED: BUDESONIDE 0.5MG/2ML AMPUL.NEB NEB ONE (08:43)
[2018-05-13] MEDS ORDERED: cefTRIAXone SODIUM 1 GM INJ ONE (08:43)
[2018-05-13] MEDS ORDERED: 0.9 % SODIUM CHLORIDE(MINIBAG+ 50 ML IV ONE (08:44)
[2018-05-13] MEDS: CITALOPRAM HYDROBROMIDE 40 MG PO SCH (08:47)
[2018-05-13] MEDS: POTASSIUM CHLORIDE 20 MEQ TABLET.ER PO SCH (08:48)
[2018-05-13] MEDS: ENOXAPARIN SODIUM 40 MG/0.4 ML DISP.SYRIN SQ SCH (08:48)
[2018-05-13] MEDS: LISINOPRIL 10 MG TABLET PO SCH (08:48)
[2018-05-13] MEDS: HYDROCHLOROTHIAZIDE 25 MG TABLET PO SCH (08:48)
[2018-05-13] MEDS: methylPREDNISolone SOD SUCC 125 MG/2 ML VIAL IVP SCH (08:49)
[2018-05-13] MEDS: BUDESONIDE 0.5MG/2ML AMPUL.NEB NEB SCH (09:09)
[2018-05-13 09:48] VITALS: BP 150/88
--- NOTE | 2018-06-06 12:51 | Discharge Summary ---
Discharge Summary - Discharge [facility] Admission Date: 05/11/18 Discharge Date: 05/13/18 History of Present Illness: Patient is a 72-year-old female who presented to the ER with c/o dysnea. She states that she was seen in the ER a week ago and diagnosed with Influenza A on 05/07/18. On Tuesday, 5 days ago she started having increased shortness of breath. Yesterday, she felt worse- she could not hardly walk to the bathroom without becoming dyspneic. She states that she thought she "was going to " so she came to the ER. On arrival to the ER it appears her oxygen sat was 87%- she does not wear oxygen at home. She has a nebulizer machine that she has been using with no relief. Condition at Discharge: Stable Home Medications: Ambulatory Orders Medication Instructions Recorded Azithromycin [Zithromax] 250 mg PO DAILY #4 tablet 05/13/18 Cefuroxime Axetil [Ceftin] 250 mg PO BID #20 tablet 05/13/18 Prednisone 20 mg PO DAILY 5 Days #10 tablet 05/13/18 Tiotropium [place] [Spiriva] 2 inh IH DAILY #1 inhaler 05/13/18 Consultations this Visit: None Procedures this Visit: None Allergies/Adverse Reactions: Allergies Allergy/AdvReac Type Severity Reaction Status Date / Time hydromorphone [From Dilaudid] Allergy Verified 05/11/18 21:38 Discharge Summary: Patient was admitted and treated for pneumonia with IV antibiotics, Nebulizers, and IV steroids to treat COPD. She has done very well and feels that she would like to go home. She is able to walk around without shortness of breath . She plans on trying to quit smoking when she goes home. She will continue on a tapering dose of steroids, oral antibiotics, and inhalers. She is too follow up with PCP within the week. Hospital Course: IV fluids, IV antibiotics, HFN tx's, IV steroids - Final Diagnosis (1) Pneumonia and influenza Problems: Improved- will continue on oral antibiotics Right or Left: Right (2) COPD exacerbation Problems: Improved- will continue on tapering dose of steroids, breathing treatments and inhalers Right or Left: Right (3) Hypokalemia Problems: Corrected Right or Left: Right (4) Influenza A Problems: Improved Right or Left: Right (5) Anxiety Problems: Stable Right or Left: Right (6) Insomnia Problems: Improved Right or Left: Right
== END 2018-05-13 10:50 | disposition home or self-care (01) | DRG 195 ==
LOC: ED 21:01 → SOUTH 22:16
PROVIDERS: ADMIT Nurse Practitioner Family; ATTEND Nurse Practitioner Family
DX: J10.00 Influenza due to other identified influenza virus with unspecified type of pneumonia (principal); R09.02 Hypoxemia; E78.6 Lipoprotein deficiency; F41.9 Anxiety disorder, unspecified; G47.09 Other insomnia; R73.9 Hyperglycemia, unspecified; F17.210 Nicotine dependence, cigarettes, uncomplicated
CPT/HCPCS: 71046; 80053; 81002; 83605; 85025; 93005; 94640; 97116; 97161; 97165; 97535; 99284; 99285; A9270; J0456; J0696; J1650; J1940; J2930; J7030; J7050; J7626; 99222; 99238; S1016; S5010

== ENCOUNTER 2018-08-16 10:49 | Outpatient (CLI) | payer MEDICARE, OTHER ==
--- NOTE | 2018-08-16 14:21 | Diagnostic Imaging Report ---
OWEN GILLESPIE [facility] [address] [facility].[address] [address] Report Submission Date: Aug 16, 2018 12:33:01 PM CDT Patient Study Name: KYLIE MARTINEZ Date: Aug 16, 2018 11:00:02 AM CDT Modality Type: DX Gender: F Description: BILAT HIPS 2V (W/PEL IF DONE) : 45 Institution: [facility] Physician: OWEN GILLESPIE Exam: Bilateral hips. History: Bilateral pain greater on the right than on the left. AP pelvis, AP views of both hips and frogleg lateral views of both hips are submitted. No signs of acute fracture or dislocation is identified. No bony erosions are seen. No soft tissue abnormalities identified. Impression: No bony abnormality. Electronically signed on Aug 16, 2018 12:33:01 PM CDT by: Omari EMMANUEL
--- NOTE | 2018-08-16 14:22 | Diagnostic Imaging Report ---
OWEN GILLESPIE [facility] [address] [facility].[address] [address] Report Submission Date: Aug 16, 2018 12:33:01 PM CDT Patient Study Name: KYLIE MARTINEZ Date: Aug 16, 2018 11:00:02 AM CDT Modality Type: DX Gender: F Description: BILAT HIPS 2V (W/PEL IF DONE) : 45 Institution: [facility] Physician: OWEN GILLESPIE Exam: Bilateral hips. History: Bilateral pain greater on the right than on the left. AP pelvis, AP views of both hips and frogleg lateral views of both hips are submitted. No signs of acute fracture or dislocation is identified. No bony erosions are seen. No soft tissue abnormalities identified. Impression: No bony abnormality. Electronically signed on Aug 16, 2018 12:33:01 PM CDT by: Omari EMMANUEL
== END 2018-08-16 10:52 ==
LOC: RAD 10:49
PROVIDERS: ATTEND Family Medicine
DX: M25.551 Pain in right hip (principal)
CPT/HCPCS: 72100; 73521